=== PATIENT | male | born 1945 | race Caucasian/White ===

== ENCOUNTER 2020-06-10 08:55 | Outpatient (CLI) | payer MEDICARE ==
[2020-06-10 13:07] LABS: Hemoglobin 16.5 g/dL (13.5-17.5); Mean Corpuscular HGB CONC 33.3 g/dL (32.0-36.0); Mean Corpuscular Hemoglobin 33.7 pg (27.0-33.0); Mean Corpuscular Volume 101.4 fl (81.2-95.1); Mean Platelet Volume 10.5 fl (7.4-10.4); Platelet Count 235 10x3/uL (150-450); RBC Distribution Width 12.6 % (11.5-14.5); Red Blood Cell (RBC) Count 4.89 10x6/uL (4.32-5.72)
[2020-06-10 13:13] LABS: Anion Gap 14 mmol/L (10-20); BUN (Urea Nitrogen) 9 mg/dL (8.4-25.7); Calc. Creatinine Clearance 0 mL/min (70-130); Carbon Dioxide 26 mmol/L (23-31); Chloride 102 mmol/L (98-107); Glucose 101 mg/dL (83-110); Potassium 4.7 mmol/L (3.5-5.1); Sodium 137 mmol/L (136-145)
[2020-06-10 23:52] LABS: SARS-CoV-2 PCR by NAA Not Detected (NotDetected)
== END 2020-06-10 08:56 | disposition home or self-care (01) ==
LOC: CSHLAB 08:55
PROVIDERS: ATTEND Physician Assistant Medical
DX: Z01.812 Encounter for preprocedural laboratory examination (principal); Z20.822 Contact with and (suspected) exposure to COVID-19; J38.7 Other diseases of larynx
CPT/HCPCS: 80048; 85027; 87635; U0003; U0005

== ENCOUNTER 2020-06-14 05:52 | Day surgery (SDC) | payer MEDICARE ==
[2020-06-13 10:18] VITALS: BMI 26.6
[2020-06-14] MEDS ORDERED: Lidocaine 1% MPF 2 ML VIAL ONE (07:17)
[2020-06-14] MEDS ORDERED: EPINEPHrine 1 MG/ML AMP ONE (07:53)
[2020-06-14] MEDS ORDERED: PROPOFOL 40 ML ONE (07:58)
[2020-06-14] MEDS ORDERED: Fentanyl 100 MCG/2 ML VIAL ONE (07:58)
[2020-06-14] MEDS ORDERED: PROPOFOL 20 ML ONE (08:00)
[2020-06-14] MEDS ORDERED: Lidocaine 1% PF 5 ML VIAL ONE (08:01)
[2020-06-14] MEDS ORDERED: Rocuronium Bromide 10 MG/ML (10ML VIAL) ONE (08:05)
[2020-06-14] MEDS ORDERED: Metoprolol Tartrate 5 MG/5 ML VIAL ONE (08:21)
[2020-06-14] MEDS ORDERED: SUGAMMADEX SODIUM 500 MG/5 ML VIAL ONE (08:27)
[2020-06-14] MEDS ORDERED: Ondansetron PF 4 MG/2 ML Vial ONE (09:13)
[2020-06-14] MEDS ORDERED: Dexamethasone 20 MG/5 ML VIAL ONE (09:44)
== END 2020-06-14 11:45 | disposition home or self-care (01) ==
LOC: CSHSDC 05:52
PROVIDERS: ATTEND Otolaryngology Otolaryngic Allergy
PROC: 0CBV8ZX Excision of Left Vocal Cord, Via Natural or Artificial Opening Endoscopic, Diagnostic (ICD-10-PCS; principal; 2020-06-14)
DX: C32.1 Malignant neoplasm of supraglottis (principal); Z79.899 Other long term (current) drug therapy
CPT/HCPCS: 88305; 88331; J0171; J1100; J2405; J2704; J3010